=== PATIENT | female | born 1950 | race Caucasian/White ===

== ENCOUNTER 2018-06-03 08:39 | Emergency (ER) | payer MEDICARE, SELFPAY ==
[2018-06-03] MEDS ORDERED: Sodium Chloride 0.9% 1,000 ML ONE (09:10)
[2018-06-03 09:12] LABS: #Basophils 0.1 thou/uL (0.0-0.2); #Eosinphils 0.3 thou/uL (0.0-0.7); #Lymphocytes 3.3 thou/uL (1.20-3.40); #Monocytes 0.5 thou/uL (0.11-0.59); #Neutrophils 2.9 thou/uL (1.40-6.50); %Basophils 1.2 % (0.0-1.0); %Eosinophils 4.2 % (0.0-10.0); %Lymphocytes 46.2 % (21.0-51.0); %Monocytes 7.4 % (0.0-10.0); %Neutrophils 41.1 % (42.0-75.0); Mean Corpuscular HGB CONC 34.1 g/dL (32.0-36.0); Mean Corpuscular Volume 99.6 fL (78.0-98.0); Mean Platelet Volume 7.9 fL (7.4-10.4); Platelet Count 287 thou/uL (130-400); Red Blood Cell (RBC) Count 3.25 mill/uL (4.20-5.40)
[2018-06-03 09:46] LABS: ALT (SGPT) 22 U/L (8-55); AST (SGOT) 19 U/L (5-34); Acetaminophen Less than 6.0 mcg/mL (10.0-30.0); Alcohol Less than 10 mg/dL (Less than 10); Alkaline Phosphatase 43 U/L (40-150); Anion Gap 16 mmol/L (10-20); BUN (Urea Nitrogen) 23 mg/dL (9.8-20.1); Bilirubin, Total 0.6 mg/dL (0.2-1.2); CKMB 1.4 ng/mL (0-6.6); Calc. Creatinine Clearance 0 mL/min (70-130); Calcium 9.5 mg/dL (7.8-10.44); Carbon Dioxide 22 mmol/L (23-31); Chloride 103 mmol/L (98-107); Estimated GFR-MDRD 64; Globulin 2.1 g/dL (2.4-3.5); Glucose 157 mg/dL (80-115); Potassium 3.9 mmol/L (3.5-5.1); Protein, Total 6.1 g/dL (6.0-8.3); Salicylate Less than 8.0 mg/dL (15.0-30.0); Sodium 137 mmol/L (136-145); Troponin I Less than 0.010 ng/mL (< 0.028)
[2018-06-03 09:54] LABS: Bilirubin Small (Negative); Blood, Urine Negative (Negative); Clarity Clear (Clear); Glucose, Urine (Dipstick) Negative (Negative); Leukocyte Negative (Negative); Nitrite Negative (Negative); Protein, Urine (Dipstick) Negative (Neg-Trace); Urobilinogen 0.2 mg/dL (0.2-1.0); pH, Urine 5.5 (5.0-9.0)
[2018-06-03 10:04] LABS: Amphetamine Not Detected (NotDetected); Barbiturates Screen Not Detected (NotDetected); Benzodiazepine Screen Not Detected (NotDetected); Cocaine Metabolite Screen Not Detected (NotDetected); Medtox Control Line Valid? VALID (VALID); Methadone Not Detected (NotDetected); Methamphetamine Not Detected (NotDetected); Opiate Screen Not Detected (NotDetected); Oxycodone Screen Not Detected (NotDetected); Phencyclidine (PCP) Not Detected (NotDetected); THC/Cannabinoid Screen Not Detected (NotDetected); Tricyclic Screen Detected (NotDetected)
--- NOTE | 2018-06-03 11:15 | RAD ---
PORTABLE CHEST: Date: 06-03-18 Provided Clinical History: Altered mental status. Comparison: 12-27-15 FINDINGS: Cardiac and mediastinal silhouette is within normal limits. Vascular calcification involves the aorti c arch. No focal consolidation, pleural fluid, or pneumothorax apparent. IMPRESSION: No evidence for an acute cardiopulmonary process. POS: [facility]
--- NOTE | 2018-06-03 11:26 | CT ---
BRAIN CT SCAN WITHOUT IV CONTRAST: History: 67-year-old female with altered mental status. FINDINGS: Mild bilateral atrophy. No focal mass or midline shift. No intra or extraaxial hemorrhage. IMPRESSION: No acute intracranial process. No mass or bleed. Sinuses and mastoids are clear. POS: [facility]
== END 2018-06-03 11:10 | disposition home or self-care (01) ==
LOC: NAV ERS 08:39
DX: T43.591A Poisoning by other antipsychotics and neuroleptics, accidental (unintentional), initial encounter (principal); E11.9 Type 2 diabetes mellitus without complications; I10 Essential (primary) hypertension; F17.210 Nicotine dependence, cigarettes, uncomplicated; Z79.899 Other long term (current) drug therapy; Z79.82 Long term (current) use of aspirin; Z79.84 Long term (current) use of oral hypoglycemic drugs
CPT/HCPCS: 36416; 51701; 70450; 71045; 80053; 80306; 80307; 81003; 82553; 84484; 85025; 93005; 94760; 96360; A4353; J7050

== ENCOUNTER 2019-03-01 07:08 | Outpatient (CLI) | payer MEDICARE ==
--- NOTE | 2019-03-01 08:03 | RAD ---
2 VIEWS LEFT HIP: Date: 03/01/19 PROVIDED CLINICAL HISTORY: Left hip pain. FINDINGS: There is no evidence for fracture or other acute osseous abnormality. Alignment appears anatomic. Lef t hip joint space appears preserved. IMPRESSION: No evidence for an acute osseous abnormality or significant arthropathy. POS: [facility]
== END 2019-03-01 07:09 | disposition home or self-care (01) ==
LOC: NAV RAD 07:08
PROVIDERS: ATTEND Internal Medicine
DX: M25.552 Pain in left hip (principal)

== ENCOUNTER 2019-03-24 20:10 | Emergency (ER) | payer MEDICARE ==
[2019-03-24] MEDS ORDERED: Lidocaine 1% (PF) 30 ML VIAL ONE (20:34)
[2019-03-24] MEDS ORDERED: Clindamycin 300 MG/2 ML VIAL ONE (21:40)
== END 2019-03-24 22:00 | disposition home or self-care (01) ==
LOC: NAV ERS 20:10
DX: K04.7 Periapical abscess without sinus (principal); E11.9 Type 2 diabetes mellitus without complications; I10 Essential (primary) hypertension; F17.210 Nicotine dependence, cigarettes, uncomplicated; Z79.84 Long term (current) use of oral hypoglycemic drugs; Z79.82 Long term (current) use of aspirin
CPT/HCPCS: 64450; 96372; J2001; J3490

== ENCOUNTER 2020-01-23 10:01 | Emergency (ER) | payer MEDICARE | END 2020-01-23 10:55 | disposition home or self-care (01) | LOC: NAV ERS 10:01 | DX: J11.1 Influenza due to unidentified influenza virus with other respiratory manifestations (principal); E11.9 Type 2 diabetes mellitus without complications; I10 Essential (primary) hypertension; F17.210 Nicotine dependence, cigarettes, uncomplicated; Z79.82 Long term (current) use of aspirin; Z79.84 Long term (current) use of oral hypoglycemic drugs; Z79.899 Other long term (current) drug therapy | CPT/HCPCS: 99283 ==

== ENCOUNTER 2020-11-25 18:02 | Emergency (ER) | payer MEDICARE ==
[2020-11-25] MEDS ORDERED: Ondansetron PF 4 MG/2 ML Vial ONE (18:45)
[2020-11-25] MEDS ORDERED: Morphine 2 MG/ML SYRINGE ONE (18:45)
[2020-11-25 19:05] LABS: Bilirubin Negative (Negative); Blood, Urine Trace (Negative); Clarity Clear (Clear); Glucose, Urine (Dipstick) Negative (Negative); Ketone, Urine Negative (Negative); Leukocyte Negative (Negative); Nitrite Negative (Negative); Protein, Urine (Dipstick) Negative (Neg-Trace); Urobilinogen 0.2 mg/dL (Less than 2)
[2020-11-25 19:10] LABS: ALT (SGPT) 22 U/L (8-55); AST (SGOT) 19 U/L (5-34); Albumin 4.6 g/dL (3.4-4.8); Alkaline Phosphatase 77 U/L (40-110); Anion Gap 17 mmol/L (10-20); BUN (Urea Nitrogen) 21 mg/dL (9.8-20.1); Bilirubin, Total 0.5 mg/dL (0.2-1.2); Calc. Creatinine Clearance 0 mL/min (70-130); Calcium 9.6 mg/dL (7.8-10.44); Carbon Dioxide 25 mmol/L (23-31); Chloride 99 mmol/L (98-107); Globulin 2.8 g/dL (2.4-3.5); Glucose 147 mg/dL (80-115); Lipase 23 U/L (8-78); Protein, Total 7.4 g/dL (6.0-8.3); Sodium 137 mmol/L (136-145)
[2020-11-25 19:14] LABS: #Basophils 0.1 thou/uL (0.0-0.2); #Eosinphils 0.2 thou/uL (0.0-0.7); #Lymphocytes 2.7 thou/uL (1.20-3.40); #Monocytes 0.6 thou/uL (0.11-0.59); #Neutrophils 3.9 thou/uL (1.40-6.50); %Basophils 1.1 % (0.0-1.0); %Eosinophils 2.9 % (0.0-10.0); %Monocytes 8.1 % (0.0-10.0); %Neutrophils 51.9 % (42.0-75.0); Hemoglobin 14.6 g/dL (12.0-16.0); Mean Corpuscular HGB CONC 33.8 g/dL (32.0-36.0); Mean Corpuscular Hemoglobin 35.7 pg (27.0-31.0); Mean Platelet Volume 9.5 fL (7.4-10.4); Platelet Count 223 thou/uL (130-400); RBC Distribution Width 11.9 % (11.5-14.5); Red Blood Cell (RBC) Count 4.09 mill/uL (4.20-5.40); White Blood Cell (WBC) Count 7.5 thou/uL (4.8-10.8)
[2020-11-25 19:19] LABS: RBC/HPF 0-3 HPF (0-3)
[2020-11-25] MEDS ORDERED: metroNIDAZOLE 500 MG TAB ONE (20:02)
== END 2020-11-25 20:16 | disposition home or self-care (01) ==
LOC: NAV ERS 18:02
DX: K57.92 Diverticulitis of intestine, part unspecified, without perforation or abscess without bleeding (principal); E11.9 Type 2 diabetes mellitus without complications; I10 Essential (primary) hypertension; F17.210 Nicotine dependence, cigarettes, uncomplicated
CPT/HCPCS: 80053; 81003; 81015; 83690; 85025; 96374; 96375; J2270; J2405

== ENCOUNTER 2021-04-13 08:36 | Emergency (ER) | payer MEDICARE ==
[2021-04-13 09:39] LABS: #Basophils 0.1 thou/uL (0.0-0.2); #Eosinphils 0.4 thou/uL (0.0-0.7); #Lymphocytes 2.7 thou/uL (1.20-3.40); #Monocytes 0.6 thou/uL (0.11-0.59); #Neutrophils 6.1 thou/uL (1.40-6.50); %Eosinophils 4.1 % (0.0-10.0); %Lymphocytes 26.9 % (21.0-51.0); %Monocytes 6.4 % (0.0-10.0); %Neutrophils 61.6 % (42.0-75.0); Hemoglobin 13.4 g/dL (12.0-16.0); Mean Corpuscular HGB CONC 31.5 g/dL (32.0-36.0); Mean Corpuscular Hemoglobin 34.2 pg (27.0-31.0); Mean Platelet Volume 9.8 fL (7.4-10.4); Platelet Count 241 thou/uL (130-400); RBC Distribution Width 11.8 % (11.5-14.5); Red Blood Cell (RBC) Count 3.91 mill/uL (4.20-5.40); White Blood Cell (WBC) Count 9.9 thou/uL (4.8-10.8)
[2021-04-13 09:52] LABS: ALT (SGPT) 21 U/L (8-55); AST (SGOT) 19 U/L (5-34); Albumin 4.1 g/dL (3.4-4.8); Alkaline Phosphatase 66 U/L (40-110); Anion Gap 15 mmol/L (10-20); BUN (Urea Nitrogen) 16 mg/dL (9.8-20.1); Bilirubin, Total 0.7 mg/dL (0.2-1.2); Calc. Creatinine Clearance 0 mL/min (70-130); Calcium 8.9 mg/dL (7.8-10.44); Carbon Dioxide 25 mmol/L (23-31); Chloride 100 mmol/L (98-107); Globulin 2.6 g/dL (2.4-3.5); Glucose 170 mg/dL (80-115); Lipase 12 U/L (8-78); Potassium 3.6 mmol/L (3.5-5.1); Protein, Total 6.7 g/dL (5.8-8.1); Sodium 136 mmol/L (136-145)
[2021-04-13 09:54] LABS: Bilirubin Small (Negative); Blood, Urine Negative (Negative); Clarity Clear (Clear); Glucose, Urine (Dipstick) Negative (Negative); Ketone, Urine Negative (Negative); Leukocyte Negative (Negative); Nitrite Negative (Negative); Protein, Urine (Dipstick) Negative (Neg-Trace); Specific Gravity, Urine 1.025 (1.005-1.030); Urobilinogen 0.2 mg/dL (Less than 2)
[2021-04-13] MEDS ORDERED: methylPREDNISolone Sod Succ/PF 125 MG/2 ML VIAL ONE (10:22)
[2021-04-13] MEDS ORDERED: diphenhydrAMINE 50 MG/ML VIAL ONE (10:22)
== END 2021-04-13 13:30 | disposition home or self-care (01) ==
LOC: NAV ERS 08:36
DX: K57.32 Diverticulitis of large intestine without perforation or abscess without bleeding (principal); E78.5 Hyperlipidemia, unspecified; E78.00 Pure hypercholesterolemia, unspecified; E11.9 Type 2 diabetes mellitus without complications; I10 Essential (primary) hypertension; F17.210 Nicotine dependence, cigarettes, uncomplicated; Z79.82 Long term (current) use of aspirin; Z79.899 Other long term (current) drug therapy
CPT/HCPCS: 74177; 80053; 81003; 83690; 85025; 96374; 96375; J1200; J2930

== ENCOUNTER 2021-09-21 15:46 | Emergency (ER) | payer OTHER, MEDICARE ==
[2021-09-21] MEDS ORDERED: Boostrix 0.5 ML (Tdap) VIAL ONE (16:04)
[2021-09-21] MEDS ORDERED: Acetaminophen 500 MG TAB ONE (16:29)
== END 2021-09-21 16:45 | disposition home or self-care (01) ==
LOC: NAV ERS 15:46
DX: S61.431A Puncture wound without foreign body of right hand, initial encounter (principal); I10 Essential (primary) hypertension; E78.5 Hyperlipidemia, unspecified; E11.9 Type 2 diabetes mellitus without complications; F17.210 Nicotine dependence, cigarettes, uncomplicated; Z79.899 Other long term (current) drug therapy; X58.XXXA Exposure to other specified factors, initial encounter
CPT/HCPCS: 90471; 90715

== ENCOUNTER 2023-05-01 18:59 | Emergency (ER) | payer MEDICARE ==
[~2023-05-01 18:59] MED LIST: Iopamidol 370 76% 100 ML VIAL ONE
[2023-05-01 19:45] LABS: #Basophils 0.1 thou/uL (0.0-0.2); #Eosinphils 0.3 thou/uL (0.0-0.7); #Lymphocytes 2.7 thou/uL (1.20-3.40); #Monocytes 0.5 thou/uL (0.11-0.59); #Neutrophils 2.7 thou/uL (1.40-6.50); %Basophils 1.7 % (0.0-1.0); %Eosinophils 4.2 % (0.0-10.0); %Monocytes 7.5 % (0.0-10.0); %Neutrophils 43.6 % (42.0-75.0); Hemoglobin 13.1 g/dL (12.0-16.0); Mean Corpuscular HGB CONC 34.2 g/dL (32.0-36.0); Mean Corpuscular Hemoglobin 35.4 pg (27.0-31.0); Mean Platelet Volume 11.8 fL (7.4-10.4); Platelet Count 186 10x3/uL (130-400); RBC Distribution Width 11.4 % (11.5-14.5); White Blood Cell (WBC) Count 6.3 10x3/uL (4.8-10.8)
[2023-05-01] MEDS ORDERED: Sodium Chloride 0.9% 1,000 ML ONE (19:47)
[2023-05-01] MEDS ORDERED: Ketorolac Tromethamine 30 MG/ML VIAL ONE (19:47)
[2023-05-01 19:52] LABS: Anisocytosis SLIGHT = 6-15 cells (100X) (0-5/hpf); Macrocytosis SLIGHT = 6-15 cells (100X) (0-5/hpf); Polychromasia SLIGHT = 2-3 cells (100X) (0-2/hpf)
[2023-05-01 19:53] LABS: Toxic Granulation SLIGHT; Vacuoles SLIGHT
[2023-05-01 19:54] LABS: Large Platelets SLIGHT (None Seen); Platelet Adequacy Comment Appears Adequate
[2023-05-01 19:55] LABS: ALT (SGPT) 16 U/L (8-55); AST (SGOT) 19 U/L (5-34); Albumin 4.1 g/dL (3.4-4.8); Alkaline Phosphatase 55 U/L (40-110); Anion Gap 17 mmol/L (10-20); BUN (Urea Nitrogen) 12 mg/dL (9.8-20.1); Bilirubin, Total 0.5 mg/dL (0.2-1.2); Calc. Creatinine Clearance 0 mL/min (70-130); Calcium 8.9 mg/dL (7.8-10.44); Carbon Dioxide 22 mmol/L (23-31); Chloride 102 mmol/L (98-107); Estimated GFR 73; Globulin 2.3 g/dL (2.4-3.5); Glucose 140 mg/dL (80-115); Lipase 9 U/L (8-78); Potassium 3.8 mmol/L (3.5-5.1); Protein, Total 6.4 g/dL (5.8-8.1); Sodium 137 mmol/L (136-145)
[2023-05-01 20:59] LABS: Bilirubin Negative (Negative); Blood, Urine Negative (Negative); Clarity Clear (Clear); Glucose, Urine (Dipstick) Negative (Negative); Ketone, Urine Negative (Negative); Leukocyte Negative (Negative); Nitrite Negative (Negative); Protein, Urine (Dipstick) Negative (Neg-Trace); Urobilinogen 0.2 mg/dL (Less than 2)
[2023-05-01 21:00] LABS: CAUTI Indications for Culture Pelvic or flank pain
[2023-05-01 21:01] LABS: Bacteria/HPF None Seen HPF (None Seen); RBC/HPF 0-3 HPF (0-3); Squamous Epithelial None Seen HPF (0-3); WBC/HPF None Seen HPF (0-3)
[2023-05-01 21:02] LABS: Urine Culture Reflex No No
[2023-05-01] MEDS ORDERED: metroNIDAZOLE 500 MG TAB ONE (21:07)
[2023-05-01] MEDS ORDERED: Amoxicillin/Potassium Clav 875 MG TAB ONE (21:07)
== END 2023-05-01 21:15 | disposition home or self-care (01) ==
LOC: NAV ERS 18:59
DX: K57.32 Diverticulitis of large intestine without perforation or abscess without bleeding (principal); E78.00 Pure hypercholesterolemia, unspecified; I25.10 Atherosclerotic heart disease of native coronary artery without angina pectoris; E11.9 Type 2 diabetes mellitus without complications; F17.210 Nicotine dependence, cigarettes, uncomplicated
CPT/HCPCS: 36415; 74177; 80053; 81001; 83605; 83690; 84484; 85025; 87040; 93005; 96361; 96374; J1885; J7050; Q9967

== ENCOUNTER 2025-05-21 16:25 | Emergency (ER) | payer MEDICARE ==
[2025-05-21 17:25] LABS: #Lymphocytes 2.6 thou/uL (1.20-3.40); #Neutrophils 3.5 thou/uL (1.40-6.50); %Basophils 2.0 % (0.0-1.0); %Eosinophils 3.1 % (0.0-10.0); %Lymphocytes 37.2 % (21.0-51.0); %Monocytes 8.2 % (0.0-10.0); %Neutrophils 49.6 % (42.0-75.0); Hematocrit 35.7 % (36.0-47.0); Hemoglobin 12.9 g/dL (12.0-16.0); Manual Diff?? NO; Mean Corpuscular Hemoglobin 35.8 pg (27.0-31.0); Mean Corpuscular Volume 99.4 fl (78.0-98.0); Platelet Count 173 10x3/uL (130-400); Red Blood Cell (RBC) Count 3.60 mill/uL (4.20-5.40); White Blood Cell (WBC) Count 7.0 10x3/uL (4.8-10.8)
[2025-05-21 17:26] LABS: #Basophils 0.1 thou/uL (0.0-0.2); #Eosinophils 0.2 thou/uL (0.0-0.7); #Monocytes 0.6 thou/uL (0.11-0.59)
[2025-05-21 17:28] LABS: INR-International Normal Ratio 1.0; PTT 27.3 sec (22.9-36.1); Prothrombin Time 13.5 sec (12.0-14.7)
[2025-05-21 17:34] LABS: ALT (SGPT) 16 U/L (Less than 34); AST (SGOT) 20 U/L (11-34); Albumin 3.9 g/dL (3.1-4.5); Alkaline Phosphatase 59 U/L (40-110); Anion Gap 14 mmol/L (10-20); BUN (Urea Nitrogen) 22 mg/dL (9.8-20.1); Bilirubin, Total 0.7 mg/dL (0.3-1.2); Calc. Creatinine Clearance 0 mL/min (70-130); Calcium 9.2 mg/dL (7.8-10.44); Carbon Dioxide 21 mmol/L (23-31); Chloride 106 mmol/L (98-107); Globulin 2.9 g/dL (2.4-3.5); Glucose 156 mg/dL (83-110); Potassium 4.2 mmol/L (3.5-5.1); Sodium 137 mmol/L (136-145)
[2025-05-21 17:36] LABS: Troponin I Less than 0.010 ng/mL (< 0.028)
[2025-05-21] MEDS ORDERED: Acetaminophen 500 MG TAB ONE (17:45)
[2025-05-21] MEDS ORDERED: Cyclobenzaprine 10 MG TAB ONE (17:46)
[2025-05-21 18:30] LABS: Glucose, Urine (Dipstick) Negative (Negative); Leukocyte Negative (Negative); Protein, Urine (Dipstick) Negative (Neg-Trace); Specific Gravity, Urine 1.015 (1.005-1.030)
[2025-05-21 18:32] LABS: CAUTI Indications for Culture Pelvic or flank pain; Urine Culture Reflex No No; WBC/HPF 0-3 HPF (0-3)
== END 2025-05-21 18:45 | disposition home or self-care (01) ==
LOC: NAV ERS 16:25
DX: M54.50 Low back pain, unspecified (principal); E11.65 Type 2 diabetes mellitus with hyperglycemia; F17.210 Nicotine dependence, cigarettes, uncomplicated; I10 Essential (primary) hypertension; E78.00 Pure hypercholesterolemia, unspecified; I25.10 Atherosclerotic heart disease of native coronary artery without angina pectoris; Z86.73 Personal history of transient ischemic attack (TIA), and cerebral infarction without residual deficits; Z79.02 Long term (current) use of antithrombotics/antiplatelets; Z79.899 Other long term (current) drug therapy
CPT/HCPCS: 36415; 70450; 71045; 80053; 81001; 83036; 84484; 85025; 85610; 85730; 93005; 94760

== ENCOUNTER 2025-09-29 03:41 | Emergency (ER) | payer MEDICARE ==
[2025-09-29 04:43] LABS: #Basophils 0.2 thou/uL (0.0-0.2); #Eosinophils 0.2 thou/uL (0.0-0.7); #Lymphocytes 2.1 thou/uL (1.20-3.40); #Monocytes 0.9 thou/uL (0.11-0.59); #Neutrophils 5.4 thou/uL (1.40-6.50); %Basophils 2.4 % (0.0-1.0); %Eosinophils 2.0 % (0.0-10.0); %Lymphocytes 24.0 % (21.0-51.0); %Monocytes 9.7 % (0.0-10.0); %Neutrophils 61.9 % (42.0-75.0); Hematocrit 42.9 % (36.0-47.0); Hemoglobin 14.9 g/dL (12.0-16.0); Mean Corpuscular Hemoglobin 35.9 pg (27.0-31.0); Mean Corpuscular Volume 103.0 fl (78.0-98.0); Platelet Count 212 10x3/uL (130-400); Red Blood Cell (RBC) Count 4.16 mill/uL (4.20-5.40); White Blood Cell (WBC) Count 8.7 10x3/uL (4.8-10.8)
[2025-09-29 04:52] LABS: ALT (SGPT) 26 U/L (Less than 34); AST (SGOT) 34 U/L (11-34); Albumin 3.8 g/dL (3.1-4.5); Alkaline Phosphatase 69 U/L (40-110); Anion Gap 20 mmol/L (10-20); BUN (Urea Nitrogen) 28 mg/dL (9.8-20.1); Bilirubin, Total 1.3 mg/dL (0.3-1.2); Calc. Creatinine Clearance 0 mL/min (70-130); Calcium 9.1 mg/dL (7.8-10.44); Carbon Dioxide 22 mmol/L (23-31); Chloride 98 mmol/L (98-107); Globulin 2.8 g/dL (2.4-3.5); Glucose 180 mg/dL (83-110); Lipase 7 U/L (8-78); Potassium 4.8 mmol/L (3.5-5.1); Sodium 135 mmol/L (136-145)
[2025-09-29 05:11] LABS: Platelet Adequacy Comment Appears Adequate
[2025-09-29 05:12] LABS: Macrocytosis SLIGHT = 6-15 cells (100X) (0-5/hpf)
== END 2025-09-29 08:07 | disposition short-term general hospital (02) ==
LOC: NAV ERS 03:41
DX: K35.80 Unspecified acute appendicitis (principal); K56.609 Unspecified intestinal obstruction, unspecified as to partial versus complete obstruction; I25.10 Atherosclerotic heart disease of native coronary artery without angina pectoris; E11.9 Type 2 diabetes mellitus without complications; I10 Essential (primary) hypertension; I25.2 Old myocardial infarction; E78.00 Pure hypercholesterolemia, unspecified; F17.210 Nicotine dependence, cigarettes, uncomplicated; Z86.73 Personal history of transient ischemic attack (TIA), and cerebral infarction without residual deficits; Z95.5 Presence of coronary angioplasty implant and graft; Z79.899 Other long term (current) drug therapy
CPT/HCPCS: 36415; 74176; 80053; 83690; 85025; 96365; J2543